=== PATIENT | male | born 1975 | race Caucasian/White ===

== ENCOUNTER 2016-07-23 11:22 | Inpatient (IN) | payer OTHER ==
[~2016-07-23] VITALS: Ht 190.5 cm; Wt 110.0 kg
[~2016-07-23 11:22] MED LIST: FISH OIL DR 1,1 EAC1 PO; LORTAB 7.5-3251 EACH PO; PROTONIX40 MG PO; SIMVASTATIN40 MG PO; ULTRAM50 MG PO; ZANAFLEX4 MG PO
[2016-07-23 12:25] LABS: HEMOGLOBIN 13.3 gm/dl (14.0-17.5); RED BLOOD COUNT 4.32 M/UL (4.20-5.50)
[2016-07-23 12:43] LABS: BUN/CREATININE RATIO 17 (0-10)
[2016-07-23] MEDS ORDERED: NORVASC 5 MG TAB5 MG PO (20:21)
[2016-07-23] MEDS ORDERED: LORTAB 5-325 M1 EACH PO (20:22)
[2016-07-23] MEDS ORDERED: LISINOPRIL20 MG PO (20:23)
[2016-07-24 04:21] LABS: HEMOGLOBIN 12.8 gm/dl (14.0-17.5); RED BLOOD COUNT 4.21 M/UL (4.20-5.50); WHITE BLOOD COUNT 13.2 K/UL (4.5-11.0)
[2016-07-24 04:45] LABS: BUN/CREATININE RATIO 10 (0-10)
[2016-07-26 04:40] LABS: HEMOGLOBIN 12.8 gm/dl (14.0-17.5); RED BLOOD COUNT 4.18 M/UL (4.20-5.50)
[2016-07-26 04:41] LABS: WHITE BLOOD COUNT 7.4 K/UL (4.5-11.0)
[2016-07-26 04:53] LABS: BUN/CREATININE RATIO 9 (0-10)
[2016-07-26] MEDS ORDERED: FISH OIL 1,0001 EACH PO (11:24)
[2016-07-26] MEDS ORDERED: SENOKOT-S TABL1 EACH PO (11:27)
[2016-10-03] MEDS ORDERED: NORCO 7.5-3251 EACH PO ×2 (08:59→12:34)
[2016-10-03] MEDS ORDERED: HYDRALAZINE HCL25 MG PO (09:00)
[2016-10-03] MEDS ORDERED: TRAMADOL HCL50 MG PO (09:01)
[2016-10-03] MEDS ORDERED: PROTONIX 40 MG40 M1 PO (09:01)
[2016-10-03] MEDS ORDERED: ZOFRAN4 MG PO (12:35)
[2016-10-03] MEDS ORDERED: DOCUSATE SODIU250 MG PO (12:38)
[2016-10-03] MEDS ORDERED: NAPROSYN PO (12:39)
[2016-10-03] MEDS ORDERED: BACTRIM DS TAB1 EACH PO (12:40)
== END 2016-07-26 12:50 | disposition home or self-care (01) | DRG 440 ==
LOC: ER1 11:22 → ZEROF 15:24 → MED SURG 4 15:24
PROVIDERS: Emergency Medicine; Internal Medicine Infectious Disease; ADMIT Family Medicine
DX: K85.90 Acute pancreatitis without necrosis or infection, unspecified (principal); K59.00 Constipation, unspecified; K76.0 Fatty (change of) liver, not elsewhere classified; I10 Essential (primary) hypertension; E78.1 Pure hyperglyceridemia; G89.29 Other chronic pain; M54.9 Dorsalgia, unspecified; Z88.5 Allergy status to narcotic agent; Z79.891 Long term (current) use of opiate analgesic; Z79.899 Other long term (current) drug therapy; Z28.21 Immunization not carried out because of patient refusal; Z82.49 Family history of ischemic heart disease and other diseases of the circulatory system; Z80.0 Family history of malignant neoplasm of digestive organs
CPT/HCPCS: 36415; 80053; 80061; 81001; 82150; 83690; 83735; 85025; 85027; 96361; 96374; 96375; 96376; 99285; C9113; J2270; J2405; J7050; Q9962

== ENCOUNTER 2016-09-26 14:23 | Emergency (ER) | payer OTHER ==
[~2016-09-26 14:23] MED LIST changes: +FISH OIL 1,0001 EACH PO; +LISINOPRIL20 MG PO; +LORTAB 5-325 M1 EACH PO; +NORVASC 5 MG TAB5 MG PO; +SENOKOT-S TABL1 EACH PO
[2016-10-03] MEDS ORDERED: NORCO 7.5-3251 EACH PO ×2 (08:59→12:34)
[2016-10-03] MEDS ORDERED: HYDRALAZINE HCL25 MG PO (09:00)
[2016-10-03] MEDS ORDERED: TRAMADOL HCL50 MG PO (09:01)
[2016-10-03] MEDS ORDERED: PROTONIX 40 MG40 M1 PO (09:01)
[2016-10-03] MEDS ORDERED: ZOFRAN4 MG PO (12:35)
[2016-10-03] MEDS ORDERED: DOCUSATE SODIU250 MG PO (12:38)
[2016-10-03] MEDS ORDERED: NAPROSYN PO (12:39)
[2016-10-03] MEDS ORDERED: BACTRIM DS TAB1 EACH PO (12:40)
== END 2016-09-26 16:50 | disposition home or self-care (01) ==
LOC: ER1 14:23
DX: S61.442A Puncture wound with foreign body of left hand, initial encounter (principal); I10 Essential (primary) hypertension; Z79.899 Other long term (current) drug therapy; W34.010A Accidental discharge of airgun, initial encounter; Y93.89 Activity, other specified; Y92.009 Unspecified place in unspecified non-institutional (private) residence as the place of occurrence of the external cause
CPT/HCPCS: 36415; 73130; 96372; 99283; J0690

== ENCOUNTER → 2016-10-03 | Day surgery (SDC) | payer OTHER ==
[~2016-10-03] VITALS: Ht 190.5 cm; Wt 107.0 kg
[~2016-10-03] MED LIST changes: +BACTRIM DS TAB1 EACH PO; +DOCUSATE SODIU250 MG PO; +GI COCKTAIL PO; +HYDRALAZINE HCL25 MG PO; +NAPROSYN PO; +NORCO 7.5-3251 EACH PO; +PROTONIX 40 MG40 M1 PO; +SIMVASTATIN10 MG PO; +TIZANIDINE HCL4 MG PO; +TRAMADOL HCL50 MG PO; +ZOFRAN4 MG PO
[2016-10-03 08:51] LABS: BUN/CREATININE RATIO 16 (0-10)
== END | disposition home or self-care (01) ==
LOC: OR 07:59
PROVIDERS: Orthopaedic Surgery
PROC: 0JBK0ZZ Excision of Left Hand Subcutaneous Tissue and Fascia, Open Approach (ICD-10-PCS; principal; 2016-10-03 09:55)
DX: S61.442A Puncture wound with foreign body of left hand, initial encounter (principal); I10 Essential (primary) hypertension; K21.9 Gastro-esophageal reflux disease without esophagitis; L02.512 Cutaneous abscess of left hand; Z79.891 Long term (current) use of opiate analgesic; Z79.899 Other long term (current) drug therapy; W34.010A Accidental discharge of airgun, initial encounter
CPT/HCPCS: 36415; 73120; 76000; 80048; 93005; J0690; J2250; J3010; J7120

== ENCOUNTER 2016-11-02 13:40 | Observation (INO) | payer OTHER ==
[~2016-11-02] VITALS: Ht 190.5 cm; Wt 104.8 kg
[~2016-11-02 13:40] MED LIST changes: -GI COCKTAIL PO; -SIMVASTATIN10 MG PO; -TIZANIDINE HCL4 MG PO
[2016-11-02 14:47] LABS: HEMOGLOBIN 15.8 gm/dl (14.0-17.5); RED BLOOD COUNT 5.23 M/UL (4.20-5.50); WHITE BLOOD COUNT 9.1 K/UL (4.5-11.0)
[2016-11-02 15:25] LABS: BUN/CREATININE RATIO 12 (0-10)
[2016-11-02] MEDS ORDERED: TIZANIDINE HCL4 MG PO (21:42)
[2016-11-02] MEDS ORDERED: LORTAB 5-325 M1 EACH PO (21:42)
[2016-11-02] MEDS ORDERED: ULTRAM50 MG PO (21:42)
[2016-11-02] MEDS ORDERED: GI COCKTAIL PO (21:46)
[2016-11-02] MEDS ORDERED: SIMVASTATIN10 MG PO (21:47)
[2016-11-02] MEDS ORDERED: HYDRALAZINE HCL25 MG PO (21:47)
[2016-11-02] MEDS ORDERED: PROTONIX40 MG PO (21:48)
[2016-11-03 06:38] LABS: HEMOGLOBIN 13.9 gm/dl (14.0-17.5); WHITE BLOOD COUNT 8.6 K/UL (4.5-11.0)
[2016-11-03 06:40] LABS: RED BLOOD COUNT 4.64 M/UL (4.20-5.50)
[2016-11-03 06:57] LABS: BUN/CREATININE RATIO 13 (0-10)
== END 2016-11-04 13:00 | disposition home or self-care (01) ==
LOC: ER1 13:40 → MED SURG 4 17:21 → ZEROF 17:21 → MED SURG 4 21:20
PROVIDERS: Emergency Medicine; ADMIT Internal Medicine Infectious Disease
DX: R10.11 Right upper quadrant pain (principal); K82.8 Other specified diseases of gallbladder; K76.0 Fatty (change of) liver, not elsewhere classified; I10 Essential (primary) hypertension; E78.5 Hyperlipidemia, unspecified; M54.9 Dorsalgia, unspecified; G89.29 Other chronic pain; R74.0 Nonspecific elevation of levels of transaminase and lactic acid dehydrogenase [LDH]; Z79.899 Other long term (current) drug therapy; Z87.19 Personal history of other diseases of the digestive system
CPT/HCPCS: 36415; 76705; 80053; 81001; 82150; 83690; 85025; 85610; 87086; 96361; 96365; 96375; 96376; 99285; G0378; J1335; J2270; J2405; J7030; J7050

== ENCOUNTER → 2016-11-07 | Outpatient (CLI) | payer OTHER ==
[~2016-11-07] MED LIST changes: +GI COCKTAIL PO; +SIMVASTATIN10 MG PO; +TIZANIDINE HCL4 MG PO
== END ==
LOC: NM 14:36
DX: R10.11 Right upper quadrant pain (principal)
CPT/HCPCS: 78226; A9537

== ENCOUNTER 2020-05-17 02:14 | Emergency (ER) | payer OTHER ==
[~2020-05-17 02:14] MED LIST changes: +ADMELOG SO100 UNIT/1 SC; +ADMELOG SO100 UNIT/1 SQ; +BACTROBAN OINT22 GM EXT; +BASAGLAR K100 UNIT/1 SC; +BASAGLAR K100 UNIT/1 SQ; +BENTYL 20MG TAB20 MG PO; +CARAFATE1 GM PO; +CELEBREX100 MG PO; +CELEBREX200 MG PO; +CLEOCIN HCL150 MG PO; +COLACE100 MG PO; +DOXYCYCLINE MO100 MG PO; +ENDOCET 5-3251 EACH PO; +HYDROCODON-ACE1 EAC4 PO; +IBUPROFEN600 MG PO; +IBUPROFEN800 MG PO; +KEFLEX CAP 500500 MG PO; +KEFLEX500 MG PO; +LAMISIL AT 15 G15 GM TOP; +LIDOCAINE HC TP; +LODINE CAP 300300 MG PO; +MEDROL DOSEPAK 24 MG PO; +METFORMIN HCL1000 MG PO; +NAPROSYN500 MG PO; +NORCO 5-325 TA1 EACH PO; +NORVASC10 MG PO; +PERCOCET 5-3251 EACH PO; +PERCOCET 5/325 T1 EA PO; +SILVADENE CREAM20 GM TOP; +ZANTAC 150 MG150 MG PO; +ZOFRAN 4 MG TAB4 MG PO; +ZOFRAN ODT 4 MG4 MG SL; +ZOVIRAX 800 MG800 MG PO
[2020-05-17 03:07] LABS: HEMOGLOBIN 15.4 gm/dl (14.0-17.5); RED BLOOD COUNT 4.89 M/UL (4.20-5.50); WHITE BLOOD COUNT 10.1 K/UL (4.5-11.0)
[2020-05-17 03:26] LABS: BUN/CREATININE RATIO 38 (0-10)
[2020-05-17 05:56] LABS: BUN/CREATININE RATIO 32 (0-10)
[2020-05-17] MEDS ORDERED: ZOFRAN ODT 4 MG4 MG PO (06:49)
[2020-05-17] MEDS ORDERED: CARAFATE 1 GM TA1 GM PO (06:49)
[2020-05-17] MEDS ORDERED: PROTONIX40 MG PO (06:49)
== END 2020-05-17 10:32 | disposition home or self-care (01) ==
LOC: ER1 02:14
PROVIDERS: Emergency Medicine
DX: R07.89 Other chest pain (principal); R10.84 Generalized abdominal pain; E86.0 Dehydration; E11.65 Type 2 diabetes mellitus with hyperglycemia; I10 Essential (primary) hypertension; Z98.890 Other specified postprocedural states
CPT/HCPCS: 71045; 80048; 80053; 81001; 82009; 82550; 82553; 82962; 83605; 83690; 83735; 83874; 84484; 85025; 85379; 85610; 85730; 93005; 96365; 96375; 99285; J2270; J2405; Q9967

== ENCOUNTER 2020-06-07 19:56 | Emergency (ER) | payer OTHER ==
[~2020-06-07 19:56] MED LIST changes: +CARAFATE 1 GM TA1 GM PO; +ZOFRAN ODT 4 MG4 MG PO
== END 2020-06-07 23:16 | disposition home or self-care (01) ==
LOC: ER1 19:56
DX: R33.9 Retention of urine, unspecified (principal); I10 Essential (primary) hypertension; E11.9 Type 2 diabetes mellitus without complications; F17.220 Nicotine dependence, chewing tobacco, uncomplicated
CPT/HCPCS: 51702; 81001; 87086; 99283

== ENCOUNTER → 2020-09-15 20:54 | Emergency (ER) | payer OTHER ==
[~2020-09-15 20:54] MED LIST changes: +CEPHALEXIN500 M1 PO
== END | disposition left against medical advice (07) ==
LOC: ER1 20:54
DX: Z53.21 Procedure and treatment not carried out due to patient leaving prior to being seen by health care provider (principal)
CPT/HCPCS: 93005

== ENCOUNTER 2020-10-07 05:56 | Emergency (ER) | payer OTHER ==
[~2020-10-07 05:56] MED LIST changes: -CEPHALEXIN500 M1 PO
[2020-10-07 06:35] LABS: HEMOGLOBIN 14.5 gm/dl (14.0-17.5); RED BLOOD COUNT 4.52 M/UL (4.20-5.50); WHITE BLOOD COUNT 9.4 K/UL (4.5-11.0)
[2020-10-07 07:01] LABS: BUN/CREATININE RATIO 25 (0-10)
[2020-10-07] MEDS ORDERED: CEPHALEXIN500 M1 PO (09:19)
== END 2020-10-07 09:59 | disposition home or self-care (01) ==
LOC: ER1 05:56
PROVIDERS: Family Medicine
DX: S80.852A Superficial foreign body, left lower leg, initial encounter (principal); R10.13 Epigastric pain; I10 Essential (primary) hypertension; E11.65 Type 2 diabetes mellitus with hyperglycemia; W45.8XXA Other foreign body or object entering through skin, initial encounter
CPT/HCPCS: 73590; 80053; 81001; 82150; 82550; 82553; 82962; 83690; 83874; 84484; 85025; 93971; 96374; 96375; 99284; C9113; J2270; J2405; J7030

== ENCOUNTER 2021-01-16 14:48 | Emergency (ER) | payer OTHER ==
[~2021-01-16 14:48] MED LIST changes: +CEPHALEXIN500 M1 PO
[2021-01-16 16:15] LABS: HEMOGLOBIN 15.4 gm/dl (14.0-17.5); RED BLOOD COUNT 4.82 M/UL (4.20-5.50); WHITE BLOOD COUNT 7.7 K/UL (4.5-11.0)
[2021-01-16 16:50] LABS: BUN/CREATININE RATIO 27 (0-10)
[2021-01-16] MEDS ORDERED: CYCLOBENZAPRINE5 MG PO (21:03)
[2021-01-16] MEDS ORDERED: IBUPROFEN800 MG PO (21:03)
== END 2021-01-16 21:45 | disposition home or self-care (01) ==
LOC: ER1 14:48
PROVIDERS: Physician Assistant
DX: M25.561 Pain in right knee (principal); R10.13 Epigastric pain; M25.571 Pain in right ankle and joints of right foot; E11.9 Type 2 diabetes mellitus without complications; Z90.49 Acquired absence of other specified parts of digestive tract
CPT/HCPCS: 71045; 73562; 73610; 80053; 82550; 82553; 82962; 83690; 83874; 84484; 85025; 93005; 96374; 99285; J1885

== ENCOUNTER 2021-02-02 10:37 | Emergency (ER) | payer OTHER ==
[~2021-02-02 10:37] MED LIST changes: +CYCLOBENZAPRINE5 MG PO
== END 2021-02-02 13:25 | disposition home or self-care (01) ==
LOC: ER1 10:37
DX: S61.216A Laceration without foreign body of right little finger without damage to nail, initial encounter (principal); E11.9 Type 2 diabetes mellitus without complications; I10 Essential (primary) hypertension; E78.5 Hyperlipidemia, unspecified; Z88.1 Allergy status to other antibiotic agents; W31.89XA Contact with other specified machinery, initial encounter; Y92.009 Unspecified place in unspecified non-institutional (private) residence as the place of occurrence of the external cause
CPT/HCPCS: 99283

== ENCOUNTER 2021-02-17 14:05 | Emergency (ER) | payer OTHER ==
[2021-02-17] MEDS ORDERED: BACITRACIN3.5 GM TOP (14:58)
[2021-02-17] MEDS ORDERED: CEPHALEXIN500 M1 PO (14:58)
== END 2021-02-17 15:53 | disposition home or self-care (01) ==
LOC: ER1 14:05
DX: S61.217A Laceration without foreign body of left little finger without damage to nail, initial encounter (principal); E10.9 Type 1 diabetes mellitus without complications; Z88.8 Allergy status to other drugs, medicaments and biological substances; W45.8XXA Other foreign body or object entering through skin, initial encounter
CPT/HCPCS: 99282

== ENCOUNTER 2021-04-18 17:25 | Inpatient (IN) | payer OTHER ==
[~2021-04-18] VITALS: Ht 190.5 cm; Wt 89.8 kg
[~2021-04-18 17:25] MED LIST changes: +BACITRACIN3.5 GM TOP
[2021-04-18 19:35] LABS: HEMOGLOBIN 16.5 gm/dl (14.0-17.5); RED BLOOD COUNT 5.1 M/UL (4.20-5.50); WHITE BLOOD COUNT 11.9 K/UL (4.5-11.0)
[2021-04-18 19:51] LABS: BUN/CREATININE RATIO 12 (0-10)
[2021-04-19] MEDS ORDERED: BUSPIRONE HCL5 MG PO (05:42)
[2021-04-19] MEDS ORDERED: LISINOPRIL20 MG PO (05:43)
[2021-04-19] MEDS ORDERED: OMEPRAZOLE40 MG PO (05:43)
[2021-04-19] MEDS ORDERED: PRAVASTATIN SOD40 MG PO (05:43)
[2021-04-19] MEDS ORDERED: FAMOTIDINE20 MG PO (05:44)
[2021-04-19] MEDS ORDERED: DEXCOM G61 EACH MC (05:44)
[2021-04-19] MEDS ORDERED: GABAPENTIN300 MG PO (05:45)
[2021-04-19] MEDS ORDERED: XYLOCAINE VISC100 ML PO (05:46)
[2021-04-19] MEDS ORDERED: GERI-LANTA LIQ355 ML PO (05:46)
[2021-04-19] MEDS ORDERED: SUCRALFATE1 GM/10 ML PO (11:40)
[2021-04-19] MEDS ORDERED: LANTUS SOL100 UNIT/1 SQ (11:40)
[2021-04-19] MEDS ORDERED: HYDROCODON-ACE1 EAC2 PO (11:41)
[2021-04-19] MEDS ORDERED: HUMALOG100 UNIT/3 SQ (11:43)
[2021-04-19] MEDS ORDERED: ASPIRIN81 MG PO (11:44)
[2021-04-20 05:35] LABS: WHITE BLOOD COUNT 11.4 K/UL (4.5-11.0)
[2021-04-20 05:39] LABS: RED BLOOD COUNT 4.17 M/UL (4.20-5.50)
[2021-04-20 06:40] LABS: BUN/CREATININE RATIO 17 (0-10)
[2021-04-21 06:50] LABS: HEMOGLOBIN 13.6 gm/dl (14.0-17.5); RED BLOOD COUNT 4.27 M/UL (4.20-5.50); WHITE BLOOD COUNT 10.4 K/UL (4.5-11.0)
[2021-04-21 07:25] LABS: BUN/CREATININE RATIO 14 (0-10)
[2021-04-21 12:14] LABS: HBSAG SCREEN Negative (Negative); HEP A AB, IGM Negative (Negative); HEP B CORE AB, IGM Negative (Negative); HEP C VIRUS AB 0.1 (0.0-0.9)
[2021-04-22 06:27] LABS: HEMOGLOBIN 14.4 gm/dl (14.0-17.5); RED BLOOD COUNT 4.49 M/UL (4.20-5.50); WHITE BLOOD COUNT 12.1 K/UL (4.5-11.0)
[2021-04-22 06:46] LABS: BUN/CREATININE RATIO 13 (0-10)
[2021-04-23] MEDS ORDERED: CHRONULAC20 GM/30 M PO (10:53)
[2021-04-23] MEDS ORDERED: KEFLEX CAP 250250 MG PO (10:56)
[2021-04-23] MEDS ORDERED: SUCRALFATE1 GM/10 ML PO (11:10)
== END 2021-04-23 14:37 | disposition home or self-care (01) | DRG 486 ==
LOC: ER1 17:25 → M/S 04-19 04:31 → MED SURG 4 04-19 08:52 → M/S 04-19 08:53
PROVIDERS: Emergency Medicine; Physician Assistant; Physician Assistant Medical; ADMIT Internal Medicine
PROC: 0SJD3ZZ Inspection of Left Knee Joint, Percutaneous Approach (ICD-10-PCS; principal; 2021-04-18)
PROC: 0SCC0ZZ Extirpation of Matter from Right Knee Joint, Open Approach (ICD-10-PCS; 2021-04-19)
DX: M71.161 Other infective bursitis, right knee (principal); L02.415 Cutaneous abscess of right lower limb; K86.1 Other chronic pancreatitis; L03.115 Cellulitis of right lower limb; Z20.822 Contact with and (suspected) exposure to COVID-19; I10 Essential (primary) hypertension; B95.7 Other staphylococcus as the cause of diseases classified elsewhere; G89.29 Other chronic pain; K76.9 Liver disease, unspecified; W18.30XA Fall on same level, unspecified, initial encounter; K29.70 Gastritis, unspecified, without bleeding; E11.40 Type 2 diabetes mellitus with diabetic neuropathy, unspecified; E11.65 Type 2 diabetes mellitus with hyperglycemia; Y93.9 Activity, unspecified; Z79.4 Long term (current) use of insulin; Z98.890 Other specified postprocedural states; Z90.49 Acquired absence of other specified parts of digestive tract; Z82.49 Family history of ischemic heart disease and other diseases of the circulatory system; Z80.0 Family history of malignant neoplasm of digestive organs; Z90.81 Acquired absence of spleen
CPT/HCPCS: 20611; 36415; 73560; 73564; 73701; 74018; 76000; 80048; 80053; 80074; 80202; 82962; 83036; 83690; 83735; 85025; 85027; 85652; 86140; 87040; 87070; 87205; 90471; 90715; 96374; 96375; 99285; J0696; J1100; J1650; J2001; J2250; J2270; J2370; J2405; J2543; J2704; J3010; J3370; J7030; J7070; J7120; Q9967; U0002

== ENCOUNTER → 2021-09-23 | Day surgery (SDC) | payer OTHER ==
[~2021-09-23] MED LIST changes: +ASPIRIN81 MG PO; +BACTRIM PO; +BUSPIRONE HCL5 MG PO; +CHRONULAC20 GM/30 M PO; +DEXCOM G61 EACH MC; +FAMOTIDINE20 MG PO; +GABAPENTIN300 MG PO; +GERI-LANTA LIQ355 ML PO; +HUMALOG100 UNIT/3 SQ; +HYDROCODON-ACE1 EAC2 PO; +KEFLEX CAP 250250 MG PO; +LANTUS SOL100 UNIT/1 SQ; +OMEPRAZOLE40 MG PO; +PRAVASTATIN SOD40 MG PO; +ROBAXIN 750 MG750 MG GT; +SINGULAIR10 MG PO; +SUCRALFATE1 GM/10 ML PO; +TRAZODONE HCL50 MG PO; +XYLOCAINE VISC100 ML PO; +ZOFRAN ODT 4 MG4 MG GT; +[UNRECOGNIZED DRUG - OTHER]
== END | disposition home or self-care (01) ==
LOC: OR 11:01
DX: M70.41 Prepatellar bursitis, right knee (principal); S81.021A Laceration with foreign body, right knee, initial encounter; W19.XXXA Unspecified fall, initial encounter; Y93.H2 Activity, gardening and landscaping; Y92.096 Garden or yard of other non-institutional residence as the place of occurrence of the external cause; Z20.822 Contact with and (suspected) exposure to COVID-19; I10 Essential (primary) hypertension; E78.5 Hyperlipidemia, unspecified; E11.9 Type 2 diabetes mellitus without complications; K21.9 Gastro-esophageal reflux disease without esophagitis; Z79.4 Long term (current) use of insulin; Z79.899 Other long term (current) drug therapy; Z88.5 Allergy status to narcotic agent; Z91.048 Other nonmedicinal substance allergy status
CPT/HCPCS: 73560; 76000; 82962; J0690; J1100; J1170; J2001; J2250; J2405; J2704; J3010; J7120; U0002